=== PATIENT | female | born 1970 | race Two or more races ===

== ENCOUNTER → 2021-05-07 | Day surgery (SDC) | payer OTHER ==
[~2021-05-07] VITALS: Ht 154.9 cm; Wt 74.0 kg
[~2021-05-07] MED LIST: DICL50TA2 PO; IV RINGERS,LACTATED 1000ML 1,000 ML IV SCH; LIDOCAINE 2% PF 5 ML VIAL. ONE; MELO15TA23 PO; NAPR-683 PO; PROPOFOL 10 MG/ML (20ML) VIAL. IV ONE; TIZA4TAB2 PO
[2021-05-07 09:04] VITALS: BP 153/84
[2021-05-07 10:09] VITALS: BP 128/84
--- NOTE | 2021-05-07 10:16 | PREOP HP ---
DATE OF SERVICE: 05/07/2021 REQUESTING PHYSICIAN: KIAH Maloney. PRIMARY CARE PHYSICIAN: KIAH Maloney. REASON FOR PROCEDURE: Colorectal cancer screening. HISTORY OF PRESENT ILLNESS: This is a 50-year-old female who presents for colorectal cancer screening. ALLERGIES: No known drug allergies. MEDICATIONS: MAR reviewed. FAMILY MEDICAL HISTORY: No colon cancer. SOCIAL HISTORY: No tobacco, alcohol or IV drug abuse. REVIEW OF SYSTEMS: A 13-point review of systems was done and is positive as per HPI and otherwise negative. PHYSICAL EXAMINATION: VITAL SIGNS: She is afebrile and her vital signs are stable. GENERAL: She is a well-developed, well-nourished female in no apparent distress. HEENT: Oropharynx is clear. CARDIOVASCULAR: S1, S2. LUNGS: Clear. ABDOMEN: Normoactive bowel sounds, soft, nontender, nondistended. EXTREMITIES: No edema. NEUROLOGIC: Awake, alert and oriented x 3. ASSESSMENT AND PLAN: Colorectal cancer screening. The risks and benefits of the procedure including bleeding, perforation, nondiagnosis and sedation were explained and she has agreed to proceed. EARL DR: Kavon TID: [id number]
== END | disposition home or self-care (01) ==
LOC: ENDOS 08:15
PROVIDERS: ATTEND Internal Medicine Gastroenterology
DX: Z12.11 Encounter for screening for malignant neoplasm of colon (principal); K64.0 First degree hemorrhoids; K63.89 Other specified diseases of intestine; M19.90 Unspecified osteoarthritis, unspecified site; F32.9 Major depressive disorder, single episode, unspecified; E66.3 Overweight; Z79.899 Other long term (current) drug therapy; Z98.890 Other specified postprocedural states
CPT/HCPCS: 45378; J2704